=== PATIENT | female | born 1990 | race Hispanic/Latino ===

== ENCOUNTER → 2018-08-04 | Day surgery (SDC) | payer OTHER ==
[2018-08-02 14:49] LABS: BASOPHILS % 0.3 % (0.0-1.0); EOSINOPHILS # (AUTO) 0.1 (0.0-0.4); EOSINOPHILS % 1.8 % (0.0-6.0); HEMATOCRIT 37.6 % (34.2-44.1); HEMOGLOBIN 12.4 g/dL (12.0-16.0); LYMPHOCYTES # (AUTO) 1.4 (1.0-3.2); LYMPHOCYTES % 22.5 % (18.0-39.1); MONOCYTES # (AUTO) 0.5 (0.2-0.8); MONOCYTES % 7.7 % (4.4-11.3); NEUTROPHILS # (AUTO) 4.1 (2.1-6.9); NEUTROPHILS % 67.4 % (38.7-80.0); PLATELET COUNT 274 x10e3/uL (140-360); RED BLOOD COUNT 4.13 x10e6/uL (3.6-5.1); RED CELL DISTRIBUTION WIDTH 13.4 % (11.7-14.4)
[~2018-08-04] MED LIST: BUPIVACAINE 0.25%/EPI 30ML SDV INJ ONE; CALCIUM PO; DEXAMETHASONE SOD PHOS INJ 4 MG/ML VIAL ONE; FENTANYL CITRATE/PF 100MCG/2 ML INJ ONE; FOLIC ACID1 MG PO; IBUPROFEN 800 MG/250 ML BAG IV ONE; LIDOCAINE HCL 2% LOCAL INJ 5 ML SDV VIAL INJ ONE; METHOTREXATE2.5 MG INJ; MIDAZOLAM HCL 2 MG/2 ML VIAL ONE; MULTI-VITAMIN1 EACH PO; ONDANSETRON HCL INJ 2MG/ML 2ML 2 MG/ML VIAL ONE; PROPOFOL IV EMULSION 10 MG/ML 20 ML VIAL ONE; SEVOFLURANE INHAL SOLN 250 ML PEN BTL ONE
--- OUTSIDE RECORDS SUMMARY | 2018-08-04 06:38 | XMS REPORT ---
Author Author [facility] Address Unknown Phone Unavailable Care Team Providers Care Peripheral Edp Equipment Operator Name Role Phone Unavailable Unavailable Problems This patient has no known problems. Allergies, Adverse Reactions, Alerts This patient has no known allergies or adverse reactions. Medications This patient has no known medications. Encounters Start Date/Time End Date/Time Encounter Type Admission Type Attending [facility] Care Facility Care Department Encounter ID 2017-05-21 10:36:03 2017-05-21 10:36:03 Outpatient [facility] [id number] 2017-05-21 10:16:21 2017-05-21 10:16:21 Outpatient [facility] [id number] 2017-05-21 08:21:31 2017-05-21 08:21:31 Outpatient [facility] [id number] 2017-05-18 18:47:51 2017-05-18 18:47:51 Emergency [facility] [id number] 2017-05-18 15:13:19 2017-05-18 15:13:19 Emergency [facility] [id number]
[2018-08-04 11:20] VITALS: BP 95/65
--- NOTE | 2018-08-04 12:14 | Operative Report ---
DATE OF PROCEDURE: 08/04/2018 SURGEON: Aubrey Mckeon MD PREOPERATIVE DIAGNOSIS: Umbilical hernia. POSTOPERATIVE DIAGNOSIS: Umbilical hernia. OPERATION PERFORMED: Repair of umbilical hernia. SUPERVISOR [employer]ATIONAL RESERVATIONS: MARCOS Bolanos. ANESTHESIA: General. COMPLICATIONS: None. ESTIMATED BLOOD LOSS: Minimal. DESCRIPTION OF PROCEDURE: With the patient lying in bed in the supine position under good general anesthesia, the abdomen was prepped with Betadine solution and draped in the usual manner. A semilunar subumbilical incision was made, it was carried down through the subcutaneous tissue down to the fascia. The hernia defect was then circumferentially dissected and the umbilicus was from the hernia sac. Exploration at this point revealed the patient had really good tissues all the way around. The defect was small and we decided no mesh would be necessary and a primary repair was done closing the defect transversely with interrupted sutures of 2-0 Ethibond. This gave us a satisfactory repair without any tension. The fascia was then infiltrated with 0.25% Marcaine. The umbilicus was then tacked back down to the midline fascia with 3-0 Vicryl. The subcutaneous tissue was approximated with 3-0 Vicryl and the skin was closed with subcuticular 5-0 Vicryl. Benzoin, Steri-Strips and dressings were applied. The sponge, lap, and needle count was correct. The patient tolerated the procedure well and returned to the recovery room in stable condition. Aubrey Mckeon MD JLR/MODL /[id number]
== END | disposition home or self-care (01) ==
LOC: OR 06:36
PROVIDERS: ATTEND Surgery
DX: K42.9 Umbilical hernia without obstruction or gangrene (principal); J45.909 Unspecified asthma, uncomplicated; Z01.812 Encounter for preprocedural laboratory examination
CPT/HCPCS: 36415; 49585; 81025; 85025; A4467; J1100; J2001; J2250; J2405; J2704